=== PATIENT | male | born 1990 | race Caucasian/White ===

== ENCOUNTER 2021-01-27 19:11 | Emergency (ER) | payer OTHER, SELFPAY ==
[2021-01-27 22:12] VITALS: BP 130/59; PULSE 65; RESP 18; TEMP 36.8; O2SAT 98; BMI 30.2
[2021-01-27 23:00] VITALS: BP 132/71; PULSE 83; RESP 18; TEMP 36.6; O2SAT 99
--- NOTE | 2021-01-27 23:21 | HMH.EDUTC ---
[facility] [place] Disposition Clinical Impression: Exposure to COVID-19 virus Disposition: Home, Self-Care Condition on Discharge: Good Instructions: DI for COVID-19 (Suspected or Confirmed ), Preventing the Spread of Coronavirus Discharge Instructions Additional Instructions: *Monitor Temp, Over the counter Motrin or Tylenol as directed/as needed Tylenol every 4 hours and Motrin every 6 hours (as long as your family doctor has told you that you can take it) for fever or pain. and straight to ER if unable to lower temp less than 101.0 after medication given Tessalone perrles for cough Follow up IMMEDIATELY for new or worsening symptoms or no Noticeable improvement over the next 48-72 hours. 911 for difficulty breathing or swallowing You were tested for today for COVID19 your test result should be back in the next 24-48 hours, you may call to the [facility] to see if your test results are back in the next 48 hours [phone] [facility] hours are 9am-9pm You was given a handout with instructions for Self Quarantine and Self isolation for while you wait on test results and what to do if they are positive If you are positive the Health Dept will be contacting you also Make sure to take your Vitamins Vit. C Vit D and Zinc if you can take them Prescriptions: Benzonatate [Tessalon Perle 100mg Cap*] 100 mg PO TID PRN #15 cap PRN Reason: Cough Prescription Printed Referrals: Provider,Referral, [Primary Care Provider] - As needed Forms: Work/School Release Medical Decision Making - Eugenio Inquiry Pt receiving controlled substance: No Eugenio was queried for this patient: No Vital Signs: 01/27/21 22:12 Temperature 98.3 F Temperature Source Oral Pulse Rate [Right] 65 Respiratory Rate 18 Blood Pressure [Right Arm] 130/59 L Blood Pressure Mean [Right Arm] 82 02 Sat by Pulse Oximetry 98 Oxygen Delivery Method Room Air Orders (Tests/Meds): ORDERS Category Date Time Status Full Resp Panel w/COVID ([facility]) Routine Lab 01/27/21 22:41 Ordered [facility] HPI - General Stated complaint: covid test Time Seen by Provider: 01/27/21 23:21 Mode of Arrival: Family Vehicle Source of Information: Patient Limitations: No Limitations Description of Symptoms (Recalled from Triage Doc. by RN): Patient c/o cough and is concerned he was concerned he was exposed to COVID HEENT Symptoms (Recalled from RN notes): Yes Resp Symptoms (Recalled from RN notes): No Skin Symptoms (Recalled from RN notes): No MS Symptoms (Recalled from RN notes): No Functional Status (Recalled from RN notes): NA - History of Present Illness Provider Complaint: Patient states that he was recently around someone who is COVID positive state that he has had a cough but denies fever or body aches States that due to exposure he wants to get tested - Related Data Previous Rx's Medication Instructions Recorded Benzonatate [Tessalon Perle 100mg 100 mg PO TID PRN #15 cap 01/27/21 Cap*] - Worker's Comp Is this a Worker's Comp case?: No Is this an [facility] Worker's Comp?: No Is this a [place] Worker's Comp?: No H History - Hepatitis A Screen Drug use history?: No High risk sexual behaviors?: No History of sexually transmitted infection?: No Currently employed?: No Childcare worker?: No Do you have indoor plumbing?: Yes Do you have electricity?: Yes Attestation statement:: This patient has been screened for Hepatitis A risk factors. I have reviewed the patient's past medical history: Yes ROS Obtained: Yes All systems reviewed & no additional complaints, Yes Systems reviewed as appropriate & no additional complaints - Constitutional Constitutional: Reports system reviewed and no additional complaints, except as docu, Denies body ache, Denies chills, Denies fever(s) - ENT Ears, Nose, Mouth, and Throat: Reports system reviewed and no additional complaints, except as docu, Denies nasal congestion, Denies nasal discharge, Denies sore throat - Cardiovascular Cardiova
[2021-01-28 08:56] LABS: Adenovirus,PCR Not Detected (NotDetected); Bordetella Pertussis Not Detected (NotDetected); Chlamydophila Pneumoniae, PCR Not Detected (NotDetected); Coronavirus 19, PCR Not Detected (NotDetected); Coronavirus 229E Not Detected (NotDetected); Coronavirus NL63 Not Detected (NotDetected); Coronavirus OC43 Not Detected (NotDetected); Coronovirus HKU1,PCR Not Detected (NotDetected); Human Metapneumovirus Not Detected (NotDetected); Influenza A, PCR Not Detected (NotDetected); Influenza AH1, 2009 Not Detected (NotDetected); Influenza AH1, PCR Not Detected (NotDetected); Influenza AH3,PCR Not Detected (NotDetected); Influenza B, PCR Not Detected (NotDetected); Mycoplasma Pneumoniae, PCR Not Detected (NotDetected); Parainfluenza 1, PCR Not Detected (NotDetected); Parainfluenza 2, PCR Not Detected (NotDetected); Parainfluenza 3, PCR Not Detected (NotDetected); Parainfluenza 4, PCR Not Detected (NotDetected); Respiratory Syncytial Virus Not Detected (NotDetected); Rhinovirus/Enterovirus Not Detected (NotDetected)
[2021-01-28 19:03] LABS: UTC Strep Screen (Rapid) Positive (Negative)
== END 2021-01-27 23:25 | disposition home or self-care (01) ==
PROVIDERS: Emergency Provider Nurse Practitioner
DX: J02.0 Streptococcal pharyngitis (principal); Z20.822 Contact with and (suspected) exposure to COVID-19
CPT/HCPCS: 87581; 87633; 87798; 87880; 99202; G0463

== ENCOUNTER 2021-03-07 19:49 | Emergency (ER) | payer OTHER, SELFPAY ==
[2021-03-07 20:45] VITALS: BP 127/85; PULSE 70; RESP 18; TEMP 36.8; O2SAT 98; BMI 30.2
--- NOTE | 2021-03-07 21:00 | HMH.EDUTC ---
[facility] [place] Clinical Impression: Strep throat, Exposure to COVID-19 virus Disposition: Home, Self-Care Condition on Discharge: Good Instructions: Strep Throat, DI for Strep Throat Additional Instructions: Drink plenty of fluids. Take tylenol or ibuprofen for pain or fever. Take the medications as directed. Follow up with your regular doctor. GO TO THE ER FOR ANY WORSENING SYMPTOMS Throw your tooth brush away and get a new one. Quarantine until you know the results of your covid-19 test. If it is positive, the health department should call you and give you further instructions about your length of Quarantine and other things. Notify your school or workplace of your results and follow their instructions regarding return to work/school. Prescriptions: Amoxicillin [Amoxicillin 500mg Tab] 500 mg PO TID 10 Days #30 tab Transmission Status: Received by [id number] Referrals: Provider,Referral, [Primary Care Provider] - Time of Disposition: 21:22 Medical Decision Making - Medical Records Medical records reviewed: No: I reviewed the patient's medical records. - Eugenio Inquiry Pt receiving controlled substance: No Vital Signs: 03/07/21 20:45 03/07/21 21:28 Temperature 98.2 F 98.2 F Temperature Source Oral Pulse Rate 70 Pulse Rate [Right Brachial] 70 Respiratory Rate 18 18 Blood Pressure 127/85 Blood Pressure [Right Arm] 127/85 Blood Pressure Mean [Right Arm] 99 Blood Pressure Source [Right Arm] Automatic Cuff Blood Pressure Position [Right Arm] Sitting 02 Sat by Pulse Oximetry 98 Oxygen Delivery Method Room Air Orders (Tests/Meds): ORDERS Category Date Time Status Covid-19 Nasal PCR ([facility]) Routine Lab 03/07/21 20:58 Received [facility] [place] HPI - General Stated complaint: covid swab Time Seen by Provider: 03/07/21 21:00 - History of Present Illness Provider Complaint: He states that both his children have sore throat and are running fevers. He denies symptoms in himself other than he has just felt very bad all day. He has been very fatigued. He has also had some body aches. - Related Data Previous Rx's Medication Instructions Recorded Benzonatate [Tessalon Perle 100mg 100 mg PO TID PRN #15 cap 01/27/21 Cap*] Amoxicillin [Amoxicillin 500mg Tab] 500 mg PO TID 10 Days #30 tab 03/07/21 Allergies Allergy/AdvReac Type Severity Reaction Status Date / Time No Known Allergies Allergy Verified 03/07/21 21:07 [facility] History - Hepatitis A Screen Attestation statement:: This patient has been screened for Hepatitis A risk factors. I have reviewed the patient's past medical history: Yes ROS Obtained: Yes All systems reviewed & no additional complaints - Constitutional Constitutional: Denies body ache, Denies chills, Denies fever(s), Reports poor appetite, Reports malaise - Eyes Eyes: Denies eye discharge - ENT Ears, Nose, Mouth, and Throat: Reports sore throat - Cardiovascular Cardiovascular: Denies chest pain - Respiratory Respiratory: Denies chest congestion, Denies cough, Denies dyspnea, Denies stridor, Denies wheezing - Gastrointestinal Gastrointestingal: Denies: abdominal pain, diarrhea, nausea, vomiting - Musculoskeletal Musculoskeletal: Denies joint pain, Denies back pain, Denies neck pain - Integumentary/Breasts Skin/Breast: Denies rash Physical Exam - General General appearance: alert, in no apparent distress - Head Head exam: atraumatic, normocephalic, normal inspection - Eye Eye exam: Present: normal appearance, PERRL, EOMI - ENT ENT exam: Present: mucous membranes moist, normal external ear exam - Expanded ENT Exam Nose exam: Absent: sinus tenderness Mouth exam: Present: normal external inspection Teeth exam: Present: normal inspection Throat exam: Present: tonsillar erythema, tonsillomegaly. Absent: tonsillar exudate, R peritonsillar mass, L peritonsillar mass, muffled voice - Neck Neck exam:
[2021-03-07 21:28] VITALS: BP 127/85; PULSE 70; RESP 18; TEMP 36.8; O2SAT 98
== END 2021-03-07 21:30 | disposition home or self-care (01) ==
PROVIDERS: Emergency Provider Nurse Practitioner Family
DX: U07.1 COVID-19 (principal); J02.0 Streptococcal pharyngitis
CPT/HCPCS: 99202; C9803; G0463; U0003; U0005

== ENCOUNTER → 2021-04-06 18:46 | Outpatient (CLI) | payer OTHER, SELFPAY | PROVIDERS: PCP Pediatrics; Visit Provider Nurse Practitioner | DX: Z20.822 Contact with and (suspected) exposure to COVID-19 (principal); U07.1 COVID-19 | CPT/HCPCS: C9803; U0003; U0005 ==

== ENCOUNTER 2022-05-21 00:58 | Emergency (ER) | payer OTHER, SELFPAY ==
[2022-05-21 01:01] VITALS: BP 135/87; PULSE 60; RESP 17; TEMP 36.6; O2SAT 98; BMI 29.9
[2022-05-21 01:09] VITALS: BMI 29.9
--- NOTE | 2022-05-21 01:10 | XR_ITS ---
PROCEDURE INFORMATION: Exam: XR Chest Exam date and time: 05/21/2022 1:10 AM Age: 32 years old Clinical indication: Cough and fever; Additional info: Cough, fever, aching TECHNIQUE: Imaging protocol: Radiologic exam of the chest. Views: 2 views. COMPARISON: No relevant prior studies available. FINDINGS: Lungs: Unremarkable. No consolidation. Pleural spaces: Unremarkable. No pleural effusion. No pneumothorax. Heart/Mediastinum: Unremarkable. No cardiomegaly. Vasculature: Unremarkable. Bones/joints: Unremarkable. IMPRESSION: No acute findings.
[2022-05-21 01:19] LABS: Coronavirus 19, PCR Not Detected (NotDetected); Influenza A, PCR Not Detected (NotDetected); Influenza B, PCR Not Detected (NotDetected)
[2022-05-21 01:30] LABS: Strep Scrn Group A (Rapid) Negative (Negative)
--- NOTE | 2022-05-21 01:36 | HMH.EDFEV ---
Discharge Plan Disposition Patient Disposition: Home, Self-Care Prescriptions Prescriptions: New azithromycin [azithromycin] 250 mg tablet 250 mg PO DIRECTED Qty: 6 0RF Rx Instructions: Take two (2) tablets on day #1, then one (1) tablet day #2 thru #5 prednisone [prednisone] 20 mg tablet 20 mg PO BID Qty: 10 0RF No Action amoxicillin 500 MG tablet 500 mg PO TID 10 Days Qty: 30 0RF benzonatate 100 MG capsule 100 mg PO TID PRN (Reason: Cough) Qty: 15 0RF Referrals Follow up/Referrals: Marcell Gee [Primary Care Provider] - See instructions Clinical Impressions Clinical Impression: Bronchitis Stand Alone Forms Stand Alone Forms: Work/School Release Instructions Patient Instructions: DI for Fever (Symptom) -- Adult Discharge ED Provider: Derrick Montano Fever HPI General Chief Complaint: Fever Stated Complaint: feverr,body aches,chills,sore throat,runny nose Time Seen by Provider: 05/21/22 01:37 Mode of Arrival: Family Vehicle Source of Information: Patient and Medical Record Limitations: No Limitations Description of Symptoms (Recalled from ER Triage Doc. by RN): Pt c/o cough, sore throat, runny nose, fever, chills, and body aches since Sunday (05/19). States he had a fever last night, t-max 100.4. He is taking nyquil & dayquil, last dose @ 1800 05/20. Denies any SOA or dyspnea. Denies any significant PMH. History of Present Illness HPI Narrative: over the last few days has uri sx and cough and sore throat w/o rash complaint: fever and malaise Onset (ago): hour(s) Associated symptoms: denies other symptoms Treatments prior to arrival fever: acetaminophen and ibuprofen Related Data Previous Rx's Medication Instructions Recorded benzonatate 100 mg capsule 100 mg PO TID PRN Cough #15 caps 01/27/21 amoxicillin 500 mg tablet 500 mg PO TID 10 days #30 tabs 03/07/21 azithromycin 250 mg tablet 250 mg PO DIRECTED #6 tabs 05/21/22 prednisone 20 mg tablet 20 mg PO BID #10 tabs 05/21/22 Allergies Allergy/AdvReac Type Severity Reaction Status Date / Time No Known Allergies Allergy Verified 03/07/21 21:07 PFSH PFSH Disclaimer: The information contained in this section may have been updated after the patient was seen, as this information can be updated by other users. Social History Smoking Status: Never smoker alcohol intake: never current occupational status: employed Travel in the last 8 weeks: None ROS Obtained: Yes All systems reviewed & no additional complaints except as documented Physical Exam General General appearance: alert Head Head exam: normocephalic Eye Eye exam: Present PERRL and EOMI ENT ENT exam: Present normal oropharynx, mucous membranes moist and TM's normal bilaterally Neck Neck exam: Absent full ROM Respiratory Respiratory exam: Present normal lung sounds bilaterally Cardiovascular Cardiovascular exam: Present regular rate; Absent systolic murmur Abdominal Exam Abdominal exam: Present soft Extremities Exam Extremities exam: Present full ROM Neurological Exam Neurological exam: Present alert, oriented X3 and CN II-XII intact; Absent motor sensory deficit Psychiatric Psychiatric exam: Present normal affect Skin Skin exam: Absent rash Medical Decision Making Medical Records Medical records reviewed: Yes I reviewed the patient's medical records. Eugenio Inquiry Pt receiving controlled substance: No Vital Signs: 05/21/22 01:01 Temperature 97.9 F Temperature Source Oral Pulse Rate [Right] 60 Respiratory Rate 17 Blood Pressure [Right Arm] 135/87 Blood Pressure Mean [Right Arm] 103 Blood Pressure Source [Right Arm] Automatic Cuff 02 Sat by Pulse Oximetry 98 Oxygen Delivery Method Room Air Lab Data Lab results reviewed: Yes I reviewed the patient's lab results. Lab Results 05/21/22 01:06: Group A Strep Rapid Negative 05/21/22 01:06: SARS-CoV-2 (PCR) Not detected, Influenza A Untype (PCR) Not detected,
[2022-05-21 01:54] VITALS: BP 119/68; PULSE 65; RESP 18; TEMP 36.6; O2SAT 99
== END 2022-05-21 02:02 | disposition home or self-care (01) ==
PROVIDERS: Emergency Provider Emergency Medicine; PCP Pediatrics
DX: J02.9 Acute pharyngitis, unspecified (principal); R50.9 Fever, unspecified; R09.81 Nasal congestion; R53.81 Other malaise; M79.10 Myalgia, unspecified site; Z20.822 Contact with and (suspected) exposure to COVID-19; Z79.52 Long term (current) use of systemic steroids
CPT/HCPCS: 71046; 87430; 99283; C9803; U0003; U0005

== ENCOUNTER 2022-12-01 17:51 | Emergency (ER) | payer OTHER, SELFPAY ==
[2022-12-01] VITALS (7 sets, daily range): BP systolic 117–148; BP diastolic 55–83; PULSE 76–89; RESP 15–18; TEMP 36.6–37.4; O2SAT 92–98; BMI 31.1
[2022-12-01 18:58] LABS: Coronavirus 19, PCR Not Detected (NotDetected); Influenza A, PCR Not Detected (NotDetected); Influenza B, PCR Not Detected (NotDetected)
[2022-12-01 19:07] LABS: Strep Scrn Group A (Rapid) Negative (Negative)
--- NOTE | 2022-12-01 20:04 | XR_ITS ---
PROCEDURE INFORMATION: Exam: XR Chest Exam date and time: 12/01/2022 8:04 PM Age: 32 years old Clinical indication: Cough; Additional info: Productive cough TECHNIQUE: Imaging protocol: Radiologic exam of the chest. Views: 2 views. COMPARISON: CR XR CHEST 2V 05/21/2022 1:10 AM FINDINGS: Lungs: Central opacities with peribronchial cuffing, seen to advantage on the lateral chest radiograph suggest viral process versus reactive airways without convincing consolidation. Pleural spaces: Unremarkable. No pleural effusion. No pneumothorax. Heart/Mediastinum: Unremarkable. No cardiomegaly. Bones/joints: Unremarkable. IMPRESSION: Central opacities with peribronchial cuffing, seen to advantage on the lateral chest radiograph suggest viral process versus reactive airways without convincing consolidation.
--- NOTE | 2022-12-01 20:15 | HMH.EDGENADL ---
Discharge Plan Disposition Patient Disposition: Home, Self-Care Condition: Fair Prescriptions Prescriptions: New [id number]-ggyfskhrn-UE [Bromfed DM] 2-30-10 mg/5 mL syrup 5 ml PO Q6H PRN (Reason: cold symptoms) Qty: 118 0RF No Action amoxicillin 500 MG tablet 500 mg PO TID 10 Days Qty: 30 0RF benzonatate 100 MG capsule 100 mg PO TID PRN (Reason: Cough) Qty: 15 0RF azithromycin [azithromycin] 250 mg tablet 250 mg PO DIRECTED Qty: 6 0RF Rx Instructions: Take two (2) tablets on day #1, then one (1) tablet day #2 thru #5 prednisone [prednisone] 20 mg tablet 20 mg PO BID Qty: 10 0RF Referrals Follow up/Referrals: Marcell Gee [Primary Care Provider] - See instructions Activity Restrictions/Add. Instructions Additional Instructions/Restrictions: At this time was felt you are safe to be discharged home. If new or worsening symptoms please not hesitate to return to the emergency department. Please take your inhaler and medication as prescribed. If symptoms persist longer than 12 days please follow-up with your family doctor for continued evaluation Clinical Impressions Clinical Impression: Bronchitis, Upper respiratory infection, viral Discharge ED Provider: Gerald Malcolm General Adult HPI General Chief complaint: Upper Respiratory Infection Stated complaint: congestion, sore throat, bodyaches, fever Time Seen by Provider: 12/01/22 19:59 Mode of Arrival: Ambulatory Source of Information: Patient Limitations: No Limitations Description of Symptoms (Recalled from ER Triage Doc. by RN): pt to the ED with cough, congestion, runny nose and a sore throat x 1 week. pt denies any chest pain or SOB History of Present Illness HPI narrative: Patient is a 32-year-old male with no pertinent past medical history who presents emergency department for evaluation of multiple complaints. Patient has had 5 days of upper respiratory symptoms, productive cough, sore throat refractory to [id number]-pyynwin medications. Due to persistent symptoms he presents here for continued evaluation. Adequate p.o. intake and urine output. Denies chest pain, abdominal pain, acute rashes or arthralgias. No other acute complaints at this time. Related Data Previous Rx's Medication Instructions Recorded benzonatate 100 mg capsule 100 mg PO TID PRN Cough #15 caps 01/27/21 amoxicillin 500 mg tablet 500 mg PO TID 10 days #30 tabs 03/07/21 azithromycin 250 mg tablet 250 mg PO DIRECTED #6 tabs 05/21/22 prednisone 20 mg tablet 20 mg PO BID #10 tabs 05/21/22 [id number]-[id number]-MA 5 ml PO Q6H PRN cold symptoms #118 12/01/22 2 mg-30 mg-10 mg/5 mL oral syrup mL (Bromfed DM) Allergies Allergy/AdvReac Type Severity Reaction Status Date / Time No Known Allergies Allergy Verified 03/07/21 21:07 [facility] Disclaimer: The information contained in this section may have been updated after the patient was seen, as this information can be updated by other users. Social History (Updated 05/21/22 @ 01:56 by Derrick Montano MD) Smoking Status: Never smoker alcohol intake: never current occupational status: employed Travel in the last 8 weeks: None ROS Obtained: Yes Systems reviewed as appropriate & no additional complaints except as documented Physical Exam General General appearance: alert and in no apparent distress Head Head exam: atraumatic and normocephalic Eye Eye exam: Present PERRL and EOMI ENT ENT exam: Present mucous membranes moist; Absent normal oropharynx (Erythematous posterior oropharynx, no uvular deviation, no significant tonsillar swelling.) Neck Neck exam: Present normal inspection Chest Chest inspection: Present normal inspection and symmetric chest wall rise Respiratory Respiratory exam: Present wheezes (Left greater than right); Absent respiratory distress Cardiovascular Cardiovascular exam: Present regular rate and normal rhythm Abdominal Exam Abdomina
--- NOTE | 2022-12-01 21:08 | PC.NURSE ---
ER at bedside
== END 2022-12-01 21:22 | disposition home or self-care (01) ==
PROVIDERS: Emergency Medicine; Emergency Provider Emergency Medicine; PCP Pediatrics
DX: J20.9 Acute bronchitis, unspecified (principal); B34.9 Viral infection, unspecified; J06.9 Acute upper respiratory infection, unspecified
CPT/HCPCS: 71046; 87430; 87635; 87636; 99283; 99284; C9803; U0003; U0005

== ENCOUNTER 2023-10-24 07:57 | Emergency (ER) | payer SELFPAY ==
[2023-10-24 08:05] VITALS: BP 150/99; PULSE 77; RESP 18; TEMP 36.8; O2SAT 98; BMI 29.5
--- NOTE | 2023-10-24 08:25 | ED_ITS ---
Discharge Plan Disposition Patient Disposition: Home, Self-Care Prescriptions Prescriptions: New cyclobenzaprine 10 mg tablet 10 mg PO TID PRN (Reason: muscle spasm) 5 Days Qty: 15 0RF lidocaine 4 % adhesive patch,medicated 1 patch topical DAILY Qty: 5 0RF Rx Instructions: may leave on for up to 12 hrs ibuprofen 800 mg tablet 800 mg PO TID PRN (Reason: pain) 7 Days Qty: 20 0RF prednisone 50 mg tablet 50 mg PO DAILY 5 Days Qty: 5 0RF Rx Instructions: Please begin 1 day after ED visit Referrals Follow up/Referrals: Provider,Referral, [Primary Care Provider] - See instructions Activity Restrictions/Add. Instructions Additional Instructions/Restrictions: Follow-up with your primary care doctor or a spine surgeon if you are not improving in 1 to 2 weeks. Return to the emergency department if you are having any of the symptoms we discussed including urinary bowel incontinence urinary retention lower extremity weakness numbness between your legs high fevers or other concerns. Clinical Impressions Clinical Impression: Sciatica Stand Alone Forms Stand Alone Forms: Work/School Release Instructions Patient Instructions: DI for Low Back Pain Discharge ED Provider: Maile Bullard General Adult HPI General Chief complaint: Back Pain/Injury Stated complaint: back pain Time Seen by Provider: 10/24/23 08:09 Mode of Arrival: Ambulatory Source of Information: Patient Limitations: No Limitations Description of Symptoms (Recalled from ER Triage Doc. by RN): Patient c/o of low back pain. Patient reports he was carrying laundry baskets and heard a loud pop in his back last night and is now having shooting pains down both legs. History of Present Illness HPI narrative: Patient is a 33-year-old male presenting today with back pain radiating down his left leg. States he was carrying laundry basket's and heard a pop in his back. Had an injury in 2018 and has had intermittent symptoms like this since that time. States the pain is located paraspinal musculature in the lower back on the left side. Denies any urinary or bowel incontinence urinary retention lower extremity weakness saddle anesthesia fevers history of injection drug use or cancer. Related Data Previous Rx's Medication Instructions Recorded cyclobenzaprine 10 mg tablet 10 mg PO TID PRN muscle spasm 5 10/24/23 days #15 tabs ibuprofen 800 mg tablet 800 mg PO TID PRN pain 7 days #20 10/24/23 tabs lidocaine 4 % topical patch 1 patch topical DAILY #5 ea 10/24/23 prednisone 50 mg tablet 50 mg PO DAILY 5 days #5 tabs 10/24/23 Allergies Allergy/AdvReac Type Severity Reaction Status Date / Time No Known Allergies Allergy Verified 10/24/23 08:08 [facility] Disclaimer: The information contained in this section may have been updated after the patient was seen, as this information can be updated by other users. Social History (Updated 05/21/22 @ 01:56 by Derrick Montano MD) Smoking Status: Never smoker alcohol intake: never current occupational status: employed Travel in the last 8 weeks: None ROS Obtained: Yes All systems reviewed & no additional complaints except as documented Physical Exam General General appearance: alert Respiratory Respiratory exam: Present normal lung sounds bilaterally Cardiovascular Cardiovascular exam: Present regular rate Back Exam Back exam: Present other (Paraspinal muscular tenderness in the lumbar spine off to the left no significant midline tenderness neurovascularly intact distal and lower extremities normal motor strength) Neurological Exam Neurological exam: Present alert and oriented X3 Medical Decision Making Eugenio Inquiry Pt receiving controlled substance: No Vital Signs: 10/24/23 08:05 Temperature 98.2 F Temperature Source Oral Pulse Rate [Right Brachial] 77 Respiratory Rate 18 Blood Pressure [Right Arm] 150/99 H Blood Pressure Mean [Right Arm] 116 Blood Pressure Source [Right Arm] Automatic Cuff Blood Pressure Position [Right Arm] Sitting 02 Sat by Pulse Oximetry 98 Oxygen Delivery Method Room Air Orders (Tests/Meds): ED MEDICATIONS Discontinued Medications Generic Name Dose Route Start Last Admin Trade Name Freq PRN Reason Stop Dose Admin Cyclobenzaprine HCl 10 mg 10/24/23 08:21 Cyclobenzaprine 10mg Tablet PO 10/24/23 08:22 ONCE ONE Ketorolac Tromethamine 60 mg 10/24/23 08:21 Ketorolac 60mg/2ml Vial IM 10/24/23 08:22 ONCE ONE Lidocaine 1 each 10/24/23 08:21 Lidocaine 5% Transdermal Patch TP 10/24/23 08:22 ONCE ONE Prednisone 60 mg 10/24/23 08:21 Prednisone 20mg Tab PO 10/24/23 08:22 ONCE ONE Medical Decision Narrative: 33-year-old male with above history and physical. Benign physical exam no red flags from a history standpoint. No indication for any CT, x-ray, or MRI imaging. Discussed with him return precautions will treat supportively. He has been given muscle relaxer anti-inflammatory medication steroids and topical lidocaine patch patient was discharged with similar prescriptions with advised to follow-up with primary care doctor or neurosurgeon if he is not improving in several weeks for an outpatient MRI. Return precautions also emphasized. This is not consistent with cauda equina or any central process at the moment. Critical Care Critical Care Time Critical Care Time: No
[2023-10-24] MEDS: LIDOCAINE 5% TRANSDERMAL PATCH 1 EACH TP (08:36)
[2023-10-24 08:37] VITALS: BP 127/101; PULSE 77; RESP 18; TEMP 36.8; O2SAT 97
[2023-10-24] MEDS: KETOROLAC 60MG/2ML VIAL 60 MG IM (08:37)
[2023-10-24] MEDS: predniSONE 20MG TAB 60 MG PO (08:37)
[2023-10-24] MEDS: CYCLOBENZAPRINE 10MG TABLET 10 MG PO (08:37)
== END 2023-10-24 08:38 | disposition home or self-care (01) ==
PROVIDERS: Emergency Provider Student in an Organized Health Care Education/Training Program; PCP Internal Medicine
DX: M54.32 Sciatica, left side (principal)
CPT/HCPCS: 96372; 99283